=== PATIENT | male | born 1960 | race African-American/Black ===

== ENCOUNTER 2017-07-02 07:19 | Outpatient (CLI) | payer OTHER ==
--- NOTE | 2017-07-02 12:41 | MRI ---
MRI BRAIN WITH AND WITHOUT CONTRAST: DATE: 07/02/2017 HISTORY: A 57-year-old male with multiple sclerosis, experiencing bilateral vision loss, recently worsening. G35. COMPARISON: 10/14/2016 TECHNIQUE: Multiple sequences obtained in axial, sagittal, and coronal planes; pre and post IV injection of gado linium-based contrast agent: MultiHance 20 mL. Specific thin slice sequences through the orbits wer e not obtained and, therefore, this study does not evaluate the optic nerves. FINDINGS: Again noted are the multiple focal T2 hyperintense lesions in the white matter. Some of the round T2 hyperintense lesions are also T1 hypointense (black holes). Many of the lesions have a López 's finger configuration. Many are present at the septocallosal interface, and many are at the inferio r surface of the corpus callosum. Several small, round such lesions are present in the bilateral lolita trum semiovale. There is a small, faintly T2 hyperintense lesion at the lateral edge of the left bra chium pontis (middle cerebellar peduncle). There are no new lesions, compared to the previous MRI. None of the lesions enhance (no evidence of active demyelination). No discrete signal abnormality is identified in the bilateral occipital lobes. The ventricles are normal in size and configuration. No evidence of recent or remote intraaxial hemorrhage. No mass effect, midline shift, or extraaxial fluid collections. No significant interval change overall. IMPRESSION: 1. Evidence for multiple sclerosis of the brain, with moderate plaque burden. 2. No interval change since 10/14/2016. 3. This study does not have detailed images of the orbits; it was only ordered as a brain. SUZANNE [place] POS: [facility]
--- NOTE | 2017-07-02 12:54 | MRI ---
CERVICAL SPINE WITH AND WITHOUT CONTRAST: History: Bilateral hand numbness and pain. Optic neuritis. Right lower extremity weakness in the past . History of multiple sclerosis. Vision loss in both eyes for a while. Symptoms have worsened. Comparison: 07-15-16 Technique: Cervical spine MRI is performed with and without intravenous gadolinium administration. Mu ltisequential, multiplanar imaging is performed. FINDINGS: Appropriate T1 marrow signal intensity of the cervical vertebrae. Cervical spine vertebral body heigh t is maintained. No fracture. No significant STIR hyperintensity to suggest vertebral body edema or l igamentous injury. Visualized brain parenchyma is unremarkable. Re-demonstration of a T2 hyperintensity along the posterior cord at the C2 level. Additional abnormal ity in the cord is not appreciated. The C2 lesion is similar to the previous examination. No associat ed enhancement. C2-3: No high grade central canal stenosis or high grade foraminal narrowing. C3-4: Generalized disc bulge. Mild central canal stenosis. Degenerative changes of the bilateral unca l vertebral joints results in mild to moderate bilateral foraminal narrowing. C4-5: There is mild disc osteophyte complex without significant central canal stenosis. Degenerative change in bilateral uncal vertebral joints results in mild to moderate bilateral foraminal narrowing. C5-6: Broad based osteophyte indents the thecal sac. There is mild central canal stenosis. There is s table minimal flattening of the cervical cord. No T2 hyperintensity of the cord. Degenerative change of bilateral uncal vertebral joints results in moderate bilateral foraminal narrowing. C6-7: Broad based disc osteophyte complex. No high grade central canal stenosis. Stable moderate bila teral foraminal narrowing. C7-T1: No high grade central canal stenosis. Right neural foramen is patent. There does appear to be interval development of moderate left foraminal narrowing. IMPRESSION: 1. Degenerative change of the cervical spine as above. 2. Redemonstration of a T2 hyperintensity involving the upper cervical cord at the C2 level. No assoc iated enhancement to suggest active demyelination. There are no new abnormal signal intensities noted in the cervical cord. POS: OFF
== END 2017-07-02 07:20 | disposition home or self-care (01) ==
LOC: SCSMRI 07:19
PROVIDERS: ATTEND Psychiatry & Neurology Neurology
DX: G35 Multiple sclerosis (principal); M47.892 Other spondylosis, cervical region; G93.89 Other specified disorders of brain
CPT/HCPCS: 70553; 72156

== ENCOUNTER 2017-10-20 12:12 | Inpatient (IN) | payer OTHER ==
[2017-10-20] MEDS ORDERED: Acetaminophen 500 MG TAB PO PRN (13:21)
[2017-10-20 14:06] LABS: #Lymphocytes 1.5 thou/uL (1.20-3.40); #Monocytes 0.4 thou/uL (0.11-0.59); #Neutrophils 1.8 thou/uL (1.40-6.50); %Basophils 1.1 % (0.0-1.0); %Eosinophils 1.1 % (0.0-10.0); %Lymphocytes 39.7 % (21.0-51.0); %Monocytes 9.2 % (0.0-10.0); %Neutrophils 48.9 % (42.0-75.0); Hemoglobin 13.8 g/dL (14.0-18.0); Mean Corpuscular HGB CONC 33.3 g/dL (32.0-36.0); Mean Corpuscular Hemoglobin 31.2 pg (27.0-31.0); Mean Corpuscular Volume 93.4 fL (78.0-98.0); Mean Platelet Volume 7.8 fL (7.4-10.4); Platelet Count 214 thou/uL (130-400); RBC Distribution Width 11.9 % (11.5-14.5); Red Blood Cell (RBC) Count 4.44 mill/uL (4.70-6.10); White Blood Cell (WBC) Count 3.8 thou/uL (4.8-10.8)
[2017-10-20 14:23] VITALS: BMI 29.7
[2017-10-20 14:28] LABS: ALT (SGPT) 12 U/L (8-55); AST (SGOT) 11 U/L (5-34); Albumin 4.3 g/dL (3.5-5.0); Alkaline Phosphatase 59 U/L (40-150); Anion Gap 10 mmol/L (10-20); BUN (Urea Nitrogen) 18 mg/dL (8.4-25.7); Calc. Creatinine Clearance 173 mL/min (70-130); Calcium 9.1 mg/dL (7.8-10.44); Carbon Dioxide 23 mmol/L (22-29); Chloride 110 mmol/L (98-107); Estimated GFR-MDRD Greater than 90; Globulin 2.6 g/dL (2.4-3.5); Glucose 90 mg/dL (70-105); Potassium 4.1 mmol/L (3.5-5.1); Protein, Total 6.9 g/dL (6.0-8.3); Sodium 139 mmol/L (136-145)
[2017-10-20 21:47] LABS: Folate (Folic Acid) 8.6 ng/mL (7.0-31.4)
[2017-10-20] MEDS: Oxybutynin 5 MG TAB PO SCH (21:51)
[2017-10-21 01:16] LABS: Bilirubin Negative (Negative); Blood, Urine Negative (Negative); Clarity CLEAR (Clear); Glucose, Urine (Dipstick) Negative (Negative); Leukocyte Negative (Negative); Nitrite Negative (Negative); Protein, Urine (Dipstick) Negative (Neg-Trace); Specific Gravity, Urine 1.029 (1.002-1.036)
[2017-10-21 01:19] LABS: Bacteria/HPF None Seen HPF (None Seen); Hyaline Casts/LPF 0-3 HYALINE CAST LPF (0-3 Hyaline); RBC/HPF 0-3 HPF (0-3); Squamous Epithelial None Seen HPF (0-3); WBC/HPF 0-3 HPF (0-3)
[2017-10-21] MEDS: Oxybutynin 5 MG TAB PO SCH ×2 (07:46→21:18)
[2017-10-21] MEDS: TERIFLUNOMIDE PO SCH (07:46)
--- NOTE | 2017-10-21 09:55 | MRI ---
MRI THORACIC SPINE WITH AND WITHOUT CONTRAST: Date: 10-20-17 History: 57-year-old male with multiple sclerosis exacerbation, including right lower extremity weakness. Comparison: 07-16-16 Technique: Multisequence MRI of the thoracic spine obtained in sagittal and axial planes, pre and post IV inject ion of 20 ml of MultiHance gadolinium based contrast agent. FINDINGS: Again noted are the T2 hyperintense intramedullary lesions at the T7-8 and T8-9 levels as mentioned o n previous report, consistent with demyelinating plaques. There is no abnormal intramedullary enhance ment to indicate active demyelination at this time. No high grade central spinal canal stenosis or fr ank cord compression. No syrinx. No interval change overall. IMPRESSION: 1. Evidence for multiple sclerosis demyelinating plaques at the lower thoracic spine. 2. No intramedullary abnormal enhancement to indicate active demyelination. 3. No interval change since 07-16-16. POS: CET
--- NOTE | 2017-10-21 09:58 | MRI ---
BRAIN MRI WITH AND WITHOUT CONTRAST: CLINICAL HISTORY: MS exacerbation, optic neuritis with lower extremity weakness. FINDINGS: There is no evidence of acute territorial infarction, mass effect, or midline shift. Ventricular sys tem is appropriate in size. There are bilateral white matter signal abnormalities which are grossly stable. There is no evidence of an enhancing intraaxial lesion. No hemorrhagic susceptibility. Not e is made that given patient's history of optic neuritis, this examination is not tailored to the orb its. If there is clinical concern in this regard, followup may be obtained with dedicated orbital MR I as clinically necessary. IMPRESSION: Redemonstration of findings compatible with demyelinating lesions related to patient's history of mul tiple sclerosis. There is no MR evidence of active demyelination. POS: [facility]
--- NOTE | 2017-10-21 10:18 | MRI ---
MRI CERVICAL SPINE WITH AND WITHOUT CONTRAST: Date: 10-20-17 History: 57-year-old male with multiple sclerosis exacerbation. Comparison: 07-02-17 Technique: Multisequence MRI of cervical spine obtained in sagittal and axial planes, pre and post IV injection of 20 ml of MultiHance gadolinium based contrast agent. FINDINGS: Cervical spondylosis is again demonstrated, including high grade central spinal canal stenosis and se charline bilateral neural foraminal stenosis, at C5-6 and C6-7, moderate bilateral neural foraminal steno sis at C4-5, and moderate to severe bilateral neural foraminal stenosis at C3-4. Again noted is the v ertically long demyelinating plaque involving the posterior aspect of the spinal cord at the C2 level , measuring 20 mm in craniocaudal dimension. It involves the posterior midline and much of the right side of the spinal cord. No new intramedullary signal abnormality is identified. There is no abnormal intramedullary enhancement to indicate active demyelination at this time. No Chiari 1 malformation. No interval change overall. IMPRESSION: 1. Evidence for multiple sclerosis in the spinal cord: Somewhat large demyelinating plaque C2. 2. No evidence of active demyelination at this time. 3. No interval change since 07-02-17. POS: CET
[2017-10-22] MEDS: Oxybutynin 5 MG TAB PO SCH ×2 (08:01→21:04)
[2017-10-22] MEDS: TERIFLUNOMIDE PO SCH (08:02)
[2017-10-23] MEDS: Oxybutynin 5 MG TAB PO SCH ×2 (08:57→22:00)
[2017-10-23] MEDS: TERIFLUNOMIDE PO SCH (08:58)
--- NOTE | 2017-10-24 05:37 | HP ---
DATE OF ADMISSION: 10/20/2017 REASON FOR ADMISSION: Acute multiple sclerosis exacerbation. HISTORY OF PRESENT ILLNESS: Mr. Camarillo is a pleasant 57-year-old -[place] male with history of MS. He is being admitted for treatment for acute MS exacerbation. The patient has a history of M S, has been treated by me in the clinic. He had presented to me on 10/17/2017 with a complaint of in creasing right lower extremity weakness. He had mentioned that over the past 6 weeks, he has noted c ontinued decline in his vision in both eyes. He has also noted increasing difficulty with walking. He states that he is not able to move his right lower extremity and has been having difficulty with w alking even with a walker. He has not had any fever, chills, chest pain, palpitation. PAST MEDICAL HISTORY: Significant for history of stroke, congestive heart failure, multiple sclerosi s. PAST SURGICAL HISTORY: None significant. SOCIAL HISTORY: He denies smoking, alcohol use. He does have a history of cocaine use in the past. FAMILY HISTORY: None significant. CURRENT MEDICATIONS: Please review MAR. ALLERGIES: No known drug allergies. REVIEW OF SYSTEMS: As mentioned above in the HPI, otherwise negative. PHYSICAL EXAMINATION: VITAL SIGNS: Blood pressure 126/91, pulse of 65, temperature of 98.0, respirations of 16, O2 sats 96 % on room air. GENERAL: Well-developed, well-nourished -[place] male, in no apparent distress. RESPIRATORY: Clear to auscultation bilaterally. CARDIOVASCULAR: Regular rate and rhythm. NEUROLOGIC: Mental status: The patient is awake, alert, oriented x3. Speech and language: Fluent speech. Cranial nerves: Pupils are 3 mm and reactive. Visual blount are intact to finger counting. There is a right eye PD present. External muscles are intact. No nystagmus is noted. No ptosis n oted. Face is symmetric. Tongue and uvula are midline. Motor exam showed increased tone of both up per and lower extremities with more so on the right than the left. His strength is 4/5 in the right upper extremity and 5/5 in the left upper extremity. His strength in right lower extremity is 2/5 an d strength in the left lower extremity is 4/5. Sensory: Sensation is intact and symmetric. Deep te ndon reflexes 3+ reflexes in both upper and lower extremities. Babinski plantar responses extensor o n the right, equivocal on the left. There is a positive Janessa's bilaterally. IMPRESSION: 1. Acute multiple sclerosis exacerbation. 2. Bilateral . Mr. Camarillo is a pleasant 57-year-old male with history of multiple sclerosis. He is being admitted for acute multiple sclerosis exacerbation. He has noted a gradual decline in his str ength in the right lower extremity as well as worsening vision in both eyes over the past 6 weeks. F or this reason, he was admitted for treatment with IV steroids. He will be receiving IV Solu-Medrol 2 mg q.6 hours for a total of 12 doses. I will obtain MRI brain, C-spine and T-spine with and withou t contrast for further evaluation. I will consult physical therapy for gait imbalance therapy during this hospitalization. I will obtain a CBC, CMP, urinalysis, urine culture, vitamin D level and B12 with folic acid level. The patient will be closely monitored for reaction to Solu-Medrol as well as improvement .
[2017-10-24 07:18] VITALS: BP 148/91; TEMP 98.1
[2017-10-24] MEDS ORDERED: Naproxen 500 MG TAB PO SCH ×2 (09:15→12:15)
[2017-10-24] MEDS: Oxybutynin 5 MG TAB PO SCH (10:03)
[2017-10-24] MEDS: TERIFLUNOMIDE PO SCH (10:04)
== END 2017-10-24 12:48 | disposition home or self-care (01) | DRG 59 ==
LOC: T4-B 12:12
PROVIDERS: ADMIT Psychiatry & Neurology Neurology; ATTEND Psychiatry & Neurology Neurology
DX: G35 Multiple sclerosis (principal); H46.9 Unspecified optic neuritis
CPT/HCPCS: 36415; 70553; 72156; 72157; 80053; 81001; 82306; 82607; 82746; 85025; 87086; G8978-GP-CJ; G8979-GP-CJ; G8980-GP-CJ; J2930; J7050